=== PATIENT | female | born 1990 | race Hispanic/Latino ===

== ENCOUNTER 2017-07-07 12:52 | Emergency (ER) | payer MEDICAID, OTHER ==
[2017-07-07 13:18] LABS: BASOPHILS % (AUTO) 1.1 % (0.0-5.0); HEMATOCRIT 38.8 % (36-48); LYMPHOCYTES % (AUTO) 38.4 % (21.0-51.0); MEAN CORPUSCULAR HEMOGLOBIN 30.9 pg (27.0-33.0); MEAN CORPUSCULAR HGB CONC 34.9 g/dL (32.0-36.0); MEAN CORPUSCULAR VOLUME 88.5 fL (79-99); MONOCYTES % (AUTO) 7.3 % (3.0-13.0); NEUTROPHILS % (AUTO) 49.2 % (40.0-77.0); PLATELET COUNT (AUTO) 356 K/uL (130-400); RED BLOOD CELL COUNT(AUTO) 4.38 MIL/uL (4.00-5.50); RED CELL DISTRIBUTION WIDTH 12.9 % (11.0-15.5); WHITE BLOOD COUNT (AUTO) 9.1 K/uL (4.8-10.8)
[2017-07-07 13:20] LABS: APPEARANCE,URINE Clear (CLEAR); BILIRUBIN,URINE Negative (NEGATIVE); COLOR,URINE Yellow (YELLOW); GLUCOSE, URINE (UA) Negative (NEGATIVE); KETONES,URINE Negative (NEGATIVE); LEUKOCYTE ESTERASE ,URINE Negative (NEGATIVE); NITRATE,URINE Negative (NEGATIVE); OCCULT BLOOD,URINE Moderate (NEGATIVE); PROTEIN,URINE Negative (NEGATIVE); UROBILINOGEN,URINE 0.2 mg/dL (0.2-1.0)
[2017-07-07 13:29] LABS: BACTERIA,URINE Rare /HPF (None Seen); WBC,URINE 0-1 /HPF (0-1)
[2017-07-07] MEDS ORDERED: ACETAMINOPHEN 325 MG TAB ONE (14:51)
== END 2017-07-07 15:47 | disposition home or self-care (01) ==
LOC: EDH 12:52
DX: O20.0 Threatened abortion (principal); Z3A.01 Less than 8 weeks gestation of pregnancy
CPT/HCPCS: 36415; 76801; 81001; 84702; 85025; 86900; 86901

== ENCOUNTER 2018-02-15 08:46 | Emergency (ER) | payer MEDICAID, OTHER | END 2018-02-15 10:25 | disposition home or self-care (01) | LOC: EDH 08:46 | DX: O9A.212 Injury, poisoning and certain other consequences of external causes complicating pregnancy, second trimester (principal); S13.4XXA Sprain of ligaments of cervical spine, initial encounter; Z3A.18 18 weeks gestation of pregnancy; V49.49XA Driver injured in collision with other motor vehicles in traffic accident, initial encounter; Y93.89 Activity, other specified; Y92.89 Other specified places as the place of occurrence of the external cause; Y99.8 Other external cause status ==

== ENCOUNTER 2018-05-11 19:23 | Emergency (ER) | payer OTHER ==
[2018-05-11 20:10] LABS: APPEARANCE,URINE Clear (CLEAR); BILIRUBIN,URINE Negative (NEGATIVE); COLOR,URINE Yellow (YELLOW); GLUCOSE, URINE (UA) Negative (NEGATIVE); KETONES,URINE Trace mg/dL (NEGATIVE); LEUKOCYTE ESTERASE ,URINE Small (NEGATIVE); NITRATE,URINE Negative (NEGATIVE); OCCULT BLOOD,URINE Negative (NEGATIVE); PH,URINE 7.5 (5.0-8.0); PROTEIN,URINE Negative (NEGATIVE); UROBILINOGEN,URINE 0.2 mg/dL (0.2-1.0)
[2018-05-11 20:23] LABS: BASOPHILS % (AUTO) 0.6 % (0.0-5.0); EOSINOPHILS % (AUTO) 2.6 % (0.0-8.0); HEMATOCRIT 33.8 % (36-48); LYMPHOCYTES % (AUTO) 7.7 % (21.0-51.0); MEAN CORPUSCULAR HEMOGLOBIN 30.2 pg (27.0-33.0); MEAN CORPUSCULAR HGB CONC 34.5 g/dL (32.0-36.0); MEAN CORPUSCULAR VOLUME 87.5 fL (79-99); MONOCYTES % (AUTO) 6.8 % (3.0-13.0); NEUTROPHILS % (AUTO) 82.3 % (40.0-77.0); PLATELET COUNT (AUTO) 354 K/uL (130-400); RED BLOOD CELL COUNT(AUTO) 3.87 MIL/uL (4.00-5.50); RED CELL DISTRIBUTION WIDTH 12.8 % (11.0-15.5); WHITE BLOOD COUNT (AUTO) 11.1 K/uL (4.8-10.8)
[2018-05-11 20:25] LABS: BACTERIA,URINE Rare /HPF (None Seen); RBC,URINE 0-1 /HPF (0-1); SQUAMOUS EPITHELIAL CELL,UR Rare /HPF (0-2)
[2018-05-11 20:26] LABS: YEAST,URINE BUDDING Rare /HPF (None Seen)
[2018-05-11 20:42] LABS: CREATININE 0.5 mg/dL (0.5-1.5); POTASSIUM 3.4 mmol/L (3.5-5.1)
[2018-05-11 20:47] LABS: ALBUMIN 2.7 g/dL (3.5-5.0); BILIRUBIN,TOTAL 0.4 mg/dL (0.2-1.0); TOTAL PROTEIN, SERUM 7.3 g/dL (6.0-8.3)
== END 2018-05-11 21:26 | disposition left against medical advice (07) ==
LOC: EDH 19:23
DX: O26.893 Other specified pregnancy related conditions, third trimester (principal); R06.00 Dyspnea, unspecified; R07.89 Other chest pain; Z79.899 Other long term (current) drug therapy; Z3A.33 33 weeks gestation of pregnancy
CPT/HCPCS: 36415; 80053; 81001; 84484; 85025; 85378; 93005

== ENCOUNTER 2018-07-14 22:05 | Inpatient (IN) | payer OTHER ==
[~2018-07-14] VITALS: Ht 152.4 cm; Wt 68.0 kg
[2018-07-14] MEDS ORDERED: LACTATED RINGERS 1000ML 1,000 ML IV PRN (22:12)
[2018-07-14] MEDS ORDERED: LACTATED RINGERS 1000ML 1,000 ML IV SCH (22:15)
[2018-07-14] MEDS ORDERED: PREN-196 PO (22:21)
[2018-07-14 22:30] VITALS: BP 99/61
[2018-07-14 23:40] LABS: HEMATOCRIT 37.4 % (36-48); MEAN CORPUSCULAR HGB CONC 34.1 g/dL (32.0-36.0); MEAN CORPUSCULAR VOLUME 87.8 fL (79-99); PLATELET COUNT (AUTO) 393 K/uL (130-400); RED BLOOD CELL COUNT(AUTO) 4.26 MIL/uL (4.00-5.50); RED CELL DISTRIBUTION WIDTH 13.9 % (11.0-15.5)
[2018-07-15] MEDS ORDERED: ACETAMINOPHEN EXTRA STRENGTH 500 MG TABLET ONE (03:27)
[2018-07-15] MEDS ORDERED: ACETAMINOPHEN EXTRA STRENGTH 500 MG TABLET PO PRN (03:30)
[2018-07-15] MEDS ORDERED: CEFAZOLIN SODIUM 1 GM VIAL IVP PRN (07:00)
[2018-07-15] MEDS ORDERED: LACTATED RINGERS 1000ML 1,000 ML IV SCH (07:00)
[2018-07-15 07:40] LABS: RAPID PLASMA REAGIN NONREACTIVE (NONREACTIVE)
[2018-07-15] MEDS ORDERED: CITRIC ACID/SODIUM CITRATE 30 ML UDCUP ONE (08:42)
[2018-07-15] MEDS ORDERED: FENTANYL CITRATE PF 50 MCG/1 ML 2ML VIAL ONE (08:48)
[2018-07-15] MEDS ORDERED: DURAMORPH PF1 MG/ML 10ML AMP IV ONE (08:48)
[2018-07-15] MEDS ORDERED: CEFAZOLIN SODIUM 1 GM VIAL IVP ONE (08:57)
[2018-07-15] MEDS ORDERED: ONDANSETRON HCL 4 MG/2 ML VIAL ONE (09:16)
[2018-07-15] MEDS ORDERED: MIDAZOLAM HCL 1 MG/ML 2ML VIAL ONE (09:20)
[2018-07-15] MEDS ORDERED: PHENYLEPHRINE HCL 10 MG/ML 1ML VIAL IV ONE (09:27)
[2018-07-15] MEDS ORDERED: OXYTOCIN-LR 20 UNITS/1000 ML 1,000 ML IV PRN (09:33)
[2018-07-15] MEDS ORDERED: PROMETHAZINE HCL 25 MG/ML 1ML AMPULE IM PRN ×2 (09:45→11:00)
[2018-07-15] MEDS ORDERED: MEPERIDINE-PF 75 MG/ML SYG IM PRN (09:45)
[2018-07-15] MEDS ORDERED: SODIUM CHLORIDE 0.9% 10 ML VIAL IVP PRN (09:45)
[2018-07-15] MEDS ORDERED: METOCLOPRAMIDE 10 MG/2 ML VIAL IVP PRN (11:00)
[2018-07-15] MEDS ORDERED: MORPHINE SULFATE 2 MG/ML 1ML SYG IVP PRN (11:00)
[2018-07-15] MEDS: OXYTOCIN-LR 20 UNITS/1000 ML 1,000 ML IV SCH ×2 (11:00→23:45)
[2018-07-15] MEDS ORDERED: HYDROCODONE/ACETAMINOPHEN 5/325 MG TAB PO PRN ×2 (11:00)
[2018-07-15] MEDS ORDERED: ONDANSETRON HCL 4 MG/2 ML 8 MG in SODIUM CHLORIDE 0.9% 50 ML IVP NR (11:00)
[2018-07-15] MEDS ORDERED: DiphenhydrAMINE HCL 50 MG/ML VIAL IVP PRN (11:00)
[2018-07-15] MEDS ORDERED: NALOXONE HCL 0.4 MG/1 ML ML IVP PRN ×2 (11:00)
[2018-07-15] MEDS ORDERED: CITRIC ACID/SODIUM CITRATE 30 ML UDCUP PO SCH (11:00)
[2018-07-15] MEDS ORDERED: ONDANSETRON HCL 4 MG/2 ML VIAL IVP PRN ×2 (11:00)
[2018-07-15] MEDS ORDERED: EPHEDRINE SULFATE 50 MG/ML AMPULE IVP PRN (11:00)
[2018-07-15] MEDS: CALDOLOR 800MG+NS 250ML 250 ML IV SCH ×2 (13:42→19:51)
[2018-07-15 14:05] VITALS: BP 105/58
[2018-07-15 15:59] VITALS: BP 100/54
[2018-07-15] MEDS: DEXTROSE 5 %-0.45 % NACL 1,000 ML IV PRN (17:32)
[2018-07-15] MEDS ORDERED: DIPH,PERTUSS(ACELL),TET VAC/PF 0.5 ML VIAL IM ONE (18:45)
[2018-07-15 20:30] VITALS: BP 101/63
[2018-07-16 00:09] VITALS: BP 102/57
[2018-07-16] MEDS: DEXTROSE 5 %-0.45 % NACL 1,000 ML IV PRN (02:52)
[2018-07-16] MEDS: CALDOLOR 800MG+NS 250ML 250 ML IV SCH (02:52)
[2018-07-16 04:13] VITALS: BP 97/52
[2018-07-16] MEDS ORDERED: DIPH,PERTUSS(ACELL),TET VAC/PF 0.5 ML VIAL IM ONE (06:00)
[2018-07-16 06:58] LABS: HEMATOCRIT 29.2 % (36-48); MEAN CORPUSCULAR HGB CONC 33.8 g/dL (32.0-36.0); MEAN CORPUSCULAR VOLUME 88.7 fL (79-99); PLATELET COUNT (AUTO) 291 K/uL (130-400); RED CELL DISTRIBUTION WIDTH 13.7 % (11.0-15.5); WHITE BLOOD COUNT (AUTO) 10.8 K/uL (4.8-10.8)
[2018-07-16 07:48] VITALS: BP 93/55
[2018-07-16 08:17] LABS: HEPATITIS Bs ANTIGEN SCREEN P Negative (Negative)
[2018-07-16] MEDS ORDERED: LANOLIN 30GM OINTMENT TP PRN (08:30)
[2018-07-16] MEDS ORDERED: BISACODYL 10 MG SUPP.RECT RC PRN (08:30)
[2018-07-16] MEDS: DOCUSATE SODIUM 100 MG CAP PO SCH ×2 (09:06→21:45)
[2018-07-16] MEDS: SIMETHICONE 80 MG TAB.CHEW PO PRN ×3 (09:06→21:45)
[2018-07-16] MEDS: ACETAMINOPHEN-CODEINE 300/30MG TAB PO PRN ×2 (09:07→19:05)
--- NOTE | 2018-07-16 10:05 | NUR ---
LAYNE LAYNE REMOVED, CATHETER TIP INTACT, 2000mL OF CLEAR PALE YELLOW URINE REMOVED, SERENA-CARE PROVIDED; DRESSING OVER INCISION REMOVED EXPOSING INCISION w/ HIDDEN STITCH, COVERED WITH SERENA-PAD TO KEEP DRY, ABDOMINAL BINDER PLACED OVER FOR SUPPORT; SCDs REMOVED, TEDS ADJUSTED; PT OOB TO CHAIR, STEADY GAIT, TOLERATED WELL, C/O PAIN 6 OF 10 ON PAIN SCALE, WILL MEDICATE WITH SCHEDULED MOTRIN SINCE JUST ADMINISTERED T3 2TABS; RETURN DEMONSTRATION DONE WITH I.S.; CALL LIGHT WITHIN REACH; POC DISCUSSED, PT VERBALIZED UNDERSTANDING Addendum: 07/16/18 at 1951 by KIANNA BOURNE RN Amended: Links added.
[2018-07-16] MEDS: IBUPROFEN 800 MG TAB PO SCH ×2 (11:24→17:44)
[2018-07-16 11:43] VITALS: BP 98/69
--- NOTE | 2018-07-16 13:50 | NUR ---
ACTIVITY PT AMBULATED IN HALLWAY, STEADY GAIT, ACCOMPANIED BY FAMILY MEMBERS, TOLERATED WELL
[2018-07-16] MEDS: DEXTROSE 5 %-0.45 % NACL 1,000 ML IV SCH (14:15)
[2018-07-16 15:30] VITALS: BP 103/53
[2018-07-16 20:00] VITALS: BP 100/57
[2018-07-17 00:23] VITALS: BP 96/67
[2018-07-17] MEDS: IBUPROFEN 800 MG TAB PO SCH ×2 (02:01→10:27)
[2018-07-17 03:33] VITALS: BP 105/71
[2018-07-17 07:28] VITALS: BP 97/58
[2018-07-17] MEDS: DOCUSATE SODIUM 100 MG CAP PO SCH (08:25)
[2018-07-17] MEDS: ACETAMINOPHEN-CODEINE 300/30MG TAB PO PRN ×2 (08:26→13:11)
[2018-07-17] MEDS: SIMETHICONE 80 MG TAB.CHEW PO PRN ×2 (10:26→13:11)
[2018-07-17] MEDS: DEXTROSE 5 %-0.45 % NACL 1,000 ML IV SCH (10:30)
[2018-07-17 11:38] VITALS: BP 101/67
--- NOTE | 2018-07-17 15:40 | NUR ---
DISCHARGE PT STABLE, NO PAIN, NO COMPLAINTS; PT LEFT UNIT, VIA WHEELCHAIR, WITH BABY IN ARMS, ACCOMPANIED BY HINA HELLER AND FAMILY MEMBERS CARRYING ALL PERSONAL BELONGINGS, INSTRUCTIONS, AND PRESCRIPTION; PT LEFT FACILITY IN PERSONAL VEHICLE
== END 2018-07-17 15:40 | disposition home or self-care (01) | DRG 788 ==
LOC: EDH 22:05 → OBSVTOIN 22:06 → LDH 22:06 → WSH 07-15 14:05
PROVIDERS: ADMIT Obstetrics & Gynecology; ATTEND Obstetrics & Gynecology
PROC: 10D00Z1 Extraction of Products of Conception, Low, Open Approach (ICD-10-PCS; principal; 2018-07-15 08:45)
PROC: 3E0234Z Introduction of Serum, Toxoid and Vaccine into Muscle, Percutaneous Approach (ICD-10-PCS; 2018-07-16)
DX: O62.1 Secondary uterine inertia (principal); O69.1XX0 Labor and delivery complicated by cord around neck, with compression, not applicable or unspecified; O77.0 Labor and delivery complicated by meconium in amniotic fluid; Z37.0 Single live birth; Z3A.38 38 weeks gestation of pregnancy; Z23 Encounter for immunization
CPT/HCPCS: 36415; 59510; 85027; 86592; 86701; 86850; 86900; 86901; 87340; 87390; 90715; A4344; A4606; G0378; J0690; J1741; J2250; J2274; J2370; J2405; J2590; J3010

== ENCOUNTER 2019-07-13 15:16 | Emergency (ER) | payer MEDICAID, OTHER ==
[~2019-07-13 15:16] MED LIST: PREN-196 PO
[2019-07-13 16:26] LABS: EOSINOPHILS % (AUTO) 4.9 % (0.0-8.0); HEMATOCRIT 39.9 % (36-48); LYMPHOCYTES % (AUTO) 26.9 % (21.0-51.0); MEAN CORPUSCULAR HEMOGLOBIN 29.1 pg (27.0-33.0); MEAN CORPUSCULAR HGB CONC 32.8 g/dL (32.0-36.0); MEAN CORPUSCULAR VOLUME 88.7 fL (79-99); MONOCYTES % (AUTO) 7.2 % (3.0-13.0); NEUTROPHILS % (AUTO) 59.7 % (40.0-77.0); PLATELET COUNT (AUTO) 427 K/uL (130-400); RED CELL DISTRIBUTION WIDTH 12.3 % (11.0-15.5); WHITE BLOOD COUNT (AUTO) 9.9 K/uL (4.8-10.8)
[2019-07-13 16:28] LABS: CREATININE 0.5 mg/dL (0.5-1.5); POTASSIUM 3.5 mmol/L (3.5-5.1)
[2019-07-13 16:38] LABS: ALBUMIN 4.4 g/dL (3.5-5.0); BILIRUBIN,TOTAL 0.3 mg/dL (0.2-1.0); TOTAL PROTEIN, SERUM 8.7 g/dL (6.0-8.3)
[2019-07-13 17:07] LABS: APPEARANCE,URINE Clear (CLEAR); BILIRUBIN,URINE Negative (NEGATIVE); COLOR,URINE Yellow (YELLOW); GLUCOSE, URINE (UA) Negative (NEGATIVE); KETONES,URINE Negative (NEGATIVE); LEUKOCYTE ESTERASE ,URINE Negative (NEGATIVE); NITRATE,URINE Negative (NEGATIVE); OCCULT BLOOD,URINE Large (NEGATIVE); PROTEIN,URINE Negative (NEGATIVE); UROBILINOGEN,URINE 0.2 mg/dL (0.2-1.0)
[2019-07-13 17:36] LABS: RBC,URINE 51-100 /HPF (0-1)
[2019-07-13 17:37] LABS: AMORPHOUS SEDIMENT,UR Many /LPF (None Seen); BACTERIA,URINE Few /HPF (None Seen)
== END 2019-07-13 17:51 | disposition home or self-care (01) ==
LOC: EDH 15:16
DX: N93.8 Other specified abnormal uterine and vaginal bleeding (principal); Z98.890 Other specified postprocedural states
CPT/HCPCS: 36415; 80053; 81001; 84702; 85025; 86900; 86901